=== PATIENT | female | born 1960 | race Caucasian/White ===

== ENCOUNTER 2019-01-31 13:02 | Day surgery (SDC) | payer OTHER ==
[2019-01-31 13:57] LABS: ALBUMIN 3.8 g/dL (3.4-5.0); ALKALINE PHOSPHATASE 123 U/L (46-116); ALT (SGPT) 33 U/L (10-68); APTT 32.8 SECONDS (22.8-39.4); BILIRUBIN - TOTAL 0.43 mg/dL (0.2-1.3); CALC OSMOLALITY 286 mosm/kg (275-300); CALCIUM 9.3 mg/dL (8.5-10.1); CARBON DIOXIDE 26.8 mmol/L (21.0-32.0); CHLORIDE - SERUM 105 mmol/L (98-107); CREATININE - SERUM 0.8 mg/dL (0.6-1.3); GLUCOSE 127 mg/dL (74-106); INR 1.01 (0.85-1.17); POTASSIUM - SERUM 4.2 mmol/L (3.5-5.1); PROTIME 12.8 SECONDS (11.6-15.0); SODIUM 143 mmol/L (136-145); UREA NITROGEN 13 mg/dL (7-18); eGFR NON AFRICAN AMERICAN 78 mL/min (90-120)
[2019-01-31] MEDS ORDERED: PHENERGAN25 M1 PO (13:59)
[2019-01-31] MEDS ORDERED: CARDIZEM CD240 MG PO (13:59)
[2019-01-31] MEDS ORDERED: ATIVAN2 MG PO (14:00)
[2019-01-31] MEDS ORDERED: NEURONTIN 400400 MG PO (14:01)
[2019-01-31] MEDS ORDERED: BENTYL10 MG PO (14:01)
[2019-01-31] MEDS ORDERED: RESTORIL15 MG PO (14:01)
[2019-01-31] MEDS ORDERED: ZANTAC300 MG PO (14:02)
[2019-01-31] MEDS ORDERED: OMEPRAZOLE40 MG PO (14:02)
[2019-01-31] MEDS ORDERED: ELIQUIS5 MG PO (14:03)
[2019-01-31] MEDS ORDERED: COREG25 MG PO (14:03)
[2019-01-31] MEDS ORDERED: SEROQUEL200 MG PO (14:04)
[2019-01-31] MEDS ORDERED: FLUTICASONE PRO16 GM NASAL (14:04)
[2019-01-31] MEDS ORDERED: ALBUTEROL SULF8.5 GM (14:05)
[2019-01-31] MEDS ORDERED: ZANAFLEX4 MG PO (14:05)
[2019-01-31] MEDS ORDERED: LIPITOR40 MG PO (14:06)
[2019-01-31] MEDS ORDERED: BYDUREON P2 MG/0.65 SC (14:06)
[2019-01-31] MEDS ORDERED: QVAR REDIHALE10.6 G1 INH (14:06)
[2019-01-31] MEDS ORDERED: NEURONTIN 300300 MG (14:07)
[2019-01-31 14:13] VITALS: BP 127/73; BMI 35.1
[2019-01-31 14:21] LABS: HEMATOCRIT 40.1 % (36.0-48.0); HEMOGLOBIN 13.9 g/dL (12-16); MCH 31.7 pg (26.0-34.0); MCHC 34.7 g/dL (31.0-37.0); MCV 91.3 fL (80.0-100.0); MEAN PLATELET VOLUME 11.7 fL (7.4-10.4); RBC 4.39 10x6/uL (4.00-5.40); RDW 14.1 % (11.5-14.5); WBC 8.9 10x3/uL (4.8-10.8)
--- NOTE | 2019-02-03 12:39 | OP ---
PATIENT NAME: JENELLE PATEL MEDICAL RECORD: [id number] :60 LOCATION:[facility] ADMISSION DATE: SURGEON: EJ ARCE MD DATE OF OPERATION: 01/31/2019 PROCEDURE: EGD with biopsy and esophageal balloon dilatation. INDICATIONS: Ms. Patel is a pleasant 58-year-old woman with a history of hyperlipidemia, GE reflux disease, emphysema, paroxysmal atrial fibrillation (on Eliquis) who has had symptoms of nausea, vomiting, dysphagia, heartburn, and epigastric pain. She takes omeprazole 40 mg twice a day, ranitidine 300 b.i.d., and recently Carafate was added on a scheduled basis. She has had modest relief of her symptoms with the above medical regimen. She presents for outpatient EGD. PREMEDICATIONS: Total IV anesthesia (propofol 180 mg). INSTRUMENT: Olympus video gastroscope and an esophageal balloon dilator 54-60 [place]ian. PROCEDURE AND FINDINGS: After receiving informed consent, Ms. Patel's posterior pharynx was anesthetized with Cetacaine spray, placed in left lateral decubitus position, sedated as per anesthesia. After achieving adequate level of sedation, gastroscope was introduced per orally and advanced to the duodenum without difficulty. In the distal esophagus were multiple white plaques suggestive of candidiasis. At the GE junction was a partial nonobstructing Schatzki's ring. A small sliding type hiatal hernia was present. Gastric mucosa was notable for a few streaks of erythema in the antrum and antral biopsies were obtained to rule out Helicobacter pylori. No lesions, no mucosal abnormalities were seen or the mucosa appeared normal in the body along the incisura, cardia, and fundus of the stomach. Pylorus was patent. The stomach had good gastric peristalsis noted during the procedure. Pylorus was patent and competent. Duodenal mucosa was without erythema or ulcers, appeared normal through the second portion. Biopsies were taken from the second portion of the duodenum to rule out celiac disease. Esophageal balloon dilator was introduced through the gastroscope and the balloon was positioned midway across the distal esophagus insufflated to a 60-Bel[place]ian size, held in place on the appropriate PSI then deflated with good results. Balloon was withdrawn and then biopsies were taken from the mid and distal esophagus. Ms. Patel tolerated the procedure well, no immediate complications. ASSESSMENT: 1. Mild esophageal candidiasis. 2. Partial nonobstructive Schatzki's ring at the GE junction, status post esophageal balloon dilatation. 3. Small sliding type hiatal hernia. 4. Mild gastritis. RECOMMENDATIONS: 1. Follow up histopathology. 2. Nystatin swish and swallow t.i.d. for 7 days. 3. Colonoscopy as scheduled. 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
== END 2019-01-31 16:28 | disposition home or self-care (01) ==
LOC: D.OPS 13:02
PROVIDERS: Anesthesiology; ATTEND Internal Medicine Gastroenterology
DX: B37.81 Candidal esophagitis (principal); K22.2 Esophageal obstruction; K44.9 Diaphragmatic hernia without obstruction or gangrene; K29.70 Gastritis, unspecified, without bleeding; Z01.812 Encounter for preprocedural laboratory examination; E78.5 Hyperlipidemia, unspecified; K21.9 Gastro-esophageal reflux disease without esophagitis; J43.9 Emphysema, unspecified; I48.0 Paroxysmal atrial fibrillation; Z79.01 Long term (current) use of anticoagulants

== ENCOUNTER 2019-02-06 10:54 | Day surgery (SDC) | payer OTHER ==
[~2019-02-06] VITALS: Ht 162.6 cm; Wt 90.9 kg
[~2019-02-06 10:54] MED LIST: ALBUTEROL SULF8.5 GM; ATIVAN2 MG PO; BENTYL10 MG PO; BYDUREON P2 MG/0.65 SC; CARDIZEM CD240 MG PO; COREG25 MG PO; ELIQUIS5 MG PO; FLUTICASONE PRO16 GM NASAL; LIPITOR40 MG PO; NEURONTIN 300300 MG; NEURONTIN 400400 MG PO; OMEPRAZOLE40 MG PO; PHENERGAN25 M1 PO; QVAR REDIHALE10.6 G1 INH; RESTORIL15 MG PO; SEROQUEL200 MG PO; ZANAFLEX4 MG PO; ZANTAC300 MG PO
[2019-02-06 13:17] LABS: HEMOGLOBIN 14.6 g/dL (12-16); MCH 31.7 pg (26.0-34.0); MCHC 34.8 g/dL (31.0-37.0); MCV 91.1 fL (80.0-100.0); MEAN PLATELET VOLUME 11.2 fL (7.4-10.4); RBC 4.61 10x6/uL (4.00-5.40); WBC 9.2 10x3/uL (4.8-10.8)
[2019-02-06 13:38] LABS: ANION GAP 16.3 mmol/L (8-16); BILIRUBIN - TOTAL 0.4 mg/dL (0.2-1.3); CARBON DIOXIDE 27.8 mmol/L (21.0-32.0); CREATININE - SERUM 1.2 mg/dL (0.6-1.3); POTASSIUM - SERUM 4.1 mmol/L (3.5-5.1); PROTEIN - SERUM 7.5 g/dL (6.4-8.2)
[2019-02-06 14:59] VITALS: BP 117/80; Ht 162.6 cm; Wt 90.9 kg
--- NOTE | 2019-02-06 17:30 | NUR ---
DISCHARGE INSTRUCTIONS REVIEWED WITH PATIENT AND SPOUSE. DISCHARGED HOME VIA WHEELCHAIR TO PRIVATE VEHICLE WITH SPOUSE
--- NOTE | 2019-02-07 16:54 | OP ---
PATIENT NAME: JENELLE PATEL MEDICAL RECORD: [id number] :60 LOCATION:[facility] ADMISSION DATE: SURGEON: EJ ARCE MD DATE OF OPERATION: 02/06/2019 PROCEDURE: Colonoscopy with Ileoscopy biopsy and polypectomy. INDICATIONS: Ms. Patel is a very pleasant 58-year-old woman with a history of nausea, vomiting, dysphagia, heartburn, epigastric pain, diarrhea, and history of colon polyps. She had an EGD with biopsy and esophageal balloon dilatation 01/31/2019 with finding showing mild esophageal candidiasis, partial nonobstructing Schatzki's ring at the GE junction, small sliding type hiatal hernia, mild gastritis, esophageal biopsy showed benign squamous epithelium with reactive changes. Gastric biopsies were negative for Helicobacter pylori and duodenal biopsy showed benign duodenal mucosa with no significant pathologic changes. Her last colonoscopy was 10/23/2017 with finding showing colon polyps (hyperplastic and tubular adenomatous polyps). She presents for outpatient colonoscopy. PREMEDICATIONS: Total IV anesthesia (propofol 600 mg). INSTRUMENT: Olympus video colonoscope, pediatric. PROCEDURE AND FINDINGS: After receiving informed consent, Ms. Patel was placed in left lateral decubitus position, sedated as per anesthesia. After achieving an adequate level of sedation, a digital rectal exam was performed that showed no external hemorrhoidal tags, fissures or fistulas, normal sphincter tone, no palpable rectal masses. Colonoscope was introduced per rectally and advanced to the cecum without difficulty. The cecum, IC valve, and appendical orifice were identified and appeared normal. The terminal ileum was intubated and the distal small bowel mucosa was without erythema or ulcers. As the colonoscope was withdrawn, careful inspection was made of the brito of the colon. Overall mucosa had normal vascular and fold pattern. There was minimal patchy erythema in the proximal ascending colon, biopsies were obtained to rule out microscopic colitis. In the mid ascending colon was a 0.3-0.5 cm sessile polyp adjacent to a small angioectasia. The polyp was removed with hot biopsy forcep technique. There was mild bleeding at the polyp site post-polypectomy and a Hemoclip was applied to the post-polypectomy site with excellent hemostasis. The hepatic flexure was a 0.3 cm sessile polyp and the rectum was a 0.5 cm sessile polyp removed with biopsy forcep technique. Retroflexion in rectum showed mild internal hemorrhoids. A good prep was present. Withdrawal time was 9 minutes. Stool was collected for study during the procedure. Ms. Patel tolerated the procedure well, no immediate complications. ASSESSMENT: 1. Normal appearing terminal ileum mucosa. 2. Mild ascending colon erythema, status post biopsy. 3. Small ascending colon polyp status post polypectomy and Hemoclip application for hemostasis. 4. Small hepatic flexure polyp, status post polypectomy. 5. Small rectal polyp, status post polypectomy. 6. Mild internal hemorrhoids. RECOMMENDATIONS: 1. Follow up histopathology. OPERATIVE REPORT [id number] JALYN PATELLISA Lucero 2. High fiber diet. 3. Probiotics. 4. Surveillance colonoscopy in 3 years. TRANSINT:[id number] Voice Confirmation ID: [id number] DOCUMENT ID: [id number] EJ ARCE MD at 1654 CC: IMELDA LYNNE [id number] DICTATION DATE: 02/06/19 1628 ACCOUNT CONTACT ASSOCIATE: 02/06/19 1711 [facility] 02/06/19 [id number] [place] [address]
[2019-02-10 17:08] LABS: OVA + PARASITE EXAM Final report (())
== END 2019-02-06 17:30 | disposition home or self-care (01) ==
LOC: D.OPS 10:54
PROVIDERS: Anesthesiology; ATTEND Internal Medicine Gastroenterology
DX: K52.9 Noninfective gastroenteritis and colitis, unspecified (principal); K63.5 Polyp of colon; K64.8 Other hemorrhoids; Z01.812 Encounter for preprocedural laboratory examination

== ENCOUNTER → 2021-01-07 10:53 | Outpatient (CLI) | payer OTHER ==
[2019-02-06 14:59] VITALS: BMI 34.4
== END | disposition home or self-care (01) ==
LOC: D.CT 12-29 13:00
PROVIDERS: ATTEND Family Medicine
DX: K56.690 Other partial intestinal obstruction (principal)